=== PATIENT | female | born 1980 | race Two or more races ===

== ENCOUNTER 2017-02-02 09:16 | Inpatient (IN) | payer BC ==
[~2017-02-02] VITALS: Ht 162.6 cm; Wt 88.9 kg
[~2017-02-02 09:16] MED LIST: IBUP600 PO; OXYC1SOL5 PO; PERI8.6T PO; PNVPAK PO
[2017-02-09] VITALS (20 sets, daily range): BP systolic 99–121; BP diastolic 52–71; PULSE 69–82; RESP 16–20; TEMP 97.5–98.8; O2SAT 95–98
[2017-02-09] MEDS ORDERED: LACTATED RINGER'S 1000 ML INJ 1,000 ML IV ONE ×2 (10:15→13:15)
[2017-02-09] MEDS ORDERED: LACTATED RINGER'S 1000 ML INJ 1,000 ML IV SCH ×2 (10:45→18:26)
--- NOTE | 2017-02-09 10:50 | HHI.HP ---
HPI Chief Complaint Repeat . Date Seen: February 09, 2017 Travel History International Travel<30 Days: No Contact w/Intl Traveler<30Days: No History of Present Illness HPI Patient is a 36 year old at 39-2/7 weeks gestation who presents today for repeat . She denies any vaginal bleeding or discharge, no gush or leaking of fluid, and no contractions. Positive movement. No complications with . History Past Medical History Medical History: Denies Significant Hx Obstetric History Obstetric History s/p in 2014 for maternal fever, macrosomia Past Surgical History Narrative Surgical 2014 Family History Narrative Family History Family history of DM type 2 Family History: Social History Alcohol Use: No Tobacco Use: No Substance Abuse: No Allergies-Medications (Allergen,Severity, Reaction): Coded Allergies: No Known Allergies (Unverified , 03/20/15) Home Meds Reported Medications W/O Vit A W/ Fe Carbo (Pnv Ob+Dha) Pak1 Cap PO 03/20/15 Discontinued Scripts Sennosides-Docusate Sodium (Sarah-Colace 8.6-50 mg)1 Tab Tab2 Tab PO Q12H PRN ( CONSTIPATION) #28 TAB Ref 1 Prov:Bhavna Montalvo MD 03/22/15 Oxycodone W/ Acetaminophen (Oxycodone/Acetaminophen 5-325 mg/5Ml)1 Tab Tab1 Tab PO Q4H PRN (PAIN SCALE 3 TO 5) #30 TAB Prov:Bhavna Montalvo MD 03/22/15 Ibuprofen (Motrin 600 Mg Tab)600 Mg Oii511 Mg PO Q6H PRN ( CRAMPING) # 30 TAB Ref 1 Prov:Bhavna Montalvo MD 03/22/15 Review of Systems Except as stated in HPI: all other systems reviewed are Neg General / Constitutional: No: Fever, Chills Eyes: No: Blurred Vision, Visual changes HENT: No: Headaches Cardiovascular: No: Chest Pain or Discomfort Respiratory: No: Short of Breath Gastrointestinal: No: Abdominal Pain Genitourinary: No: Pelvic Pain, Discharge, Vaginal Bleeding Musculoskeletal: No: Edema Neurologic: No: Headache Psychiatric: No: Substance Abuse Physical Exam Narrative GENERAL: Well-nourished, well-developed patient. SKIN: Warm and dry. HEAD: Normocephalic and atraumatic. EYES: No scleral icterus. No injection or drainage. ENT: No nasal drainage noted. Mucous membranes pink. Airway patent. NECK: Supple, trachea midline. No JVD. CARDIOVASCULAR: Regular rate and rhythm without murmurs, gallops, or rubs. RESPIRATORY: Breath sounds equal bilaterally. No accessory muscle use. ABDOMEN/GI: Abdomen soft, non-tender, bowel sounds present, no rebound, no guarding Gravid to 39 weeks size GENITOURINARY: Membranes: intact Uterine Contractions: none FHT's: Category: I Baseline: 130 Reactive: + Variability: moderate Decels: none EXTREMITIES: No cyanosis or edema. BACK: Nontender without obvious deformity. No CVA tenderness. NEUROLOGICAL: Awake and alert. Motor and sensory grossly within normal limits. Normal speech. Data Data Vital Signs Reviewed: Yes Orders Admit To Inpatient (02/09/17 ) Code Status (02/09/17 10:15) Vital Signs (Adult) .ON ADMISSION (02/09/17 10:15) Activity Oob Ad Laura (02/09/17 10:15) Heart (02/09/17 10:15) Urinary Catheter Management CONG.Q8H (02/09/17 10:15) ^ Preps (02/09/17 10:15) Scd / Jacob / Foot Pump CONG.QSHIFT (02/09/17 10:15) ^ Ultrasound For Locatio (02/09/17 10:15) Diet Npo (02/09/17 Lunch) Lactated Ringer's 1000 Ml Inj (Lr 1000 M (02/09/17 10:15) Lactated Ringer's 1000 Ml Inj (Lr 1000 M (02/09/17 10:45) Citric Acid-Sodium Citrate Liq (Bicitra (02/09/17 11:45) Type And Screen (02/09/17 10:15) Complete Blood Count With Diff (02/09/17 10:15) Urinalysis - C+S If Indicated (02/09/17 10:15) Inpatient Certification (02/09/17 ) Specimen To Be Collected PRN (02/09/17 10:15) Cefazolin 2 Gm Premix (Ancef 2 Gm Premix (02/09/17 11:30) Assessment/Plan Assessment and Plan 36 year old at 39-2/7 weeks gestation. 1. IUP- Category I tracing, reassuring. 2. Repeat . 3. GBS negative. dw Dr. Rosalva Terry,Erika Ca MD R2 February 09, 2017 10:50
[2017-02-09 10:52] LABS: AUTOMATED NEUTROPHIL # 5.7 TH/MM3 (1.8-7.7); BASOPHIL % 0.4 % (0.0-2.0); EOSINOPHIL # 0.1 TH/MM3 (0-0.4); EOSINOPHIL % 1.3 % (0.0-4.0); HEMATOCRIT 32.5 % (35.0-46.0); HEMO FLAGS DIFF FINAL; LYMPH % 16.7 % (9.0-44.0); LYMPHOCYTE # 1.3 TH/MM3 (1.0-4.8); MEAN CELL VOLUME 84.2 FL (80.0-100.0); MEAN CORPUSCULAR HEMOGLOBIN 27.3 PG (27.0-34.0); MEAN CORPUSCULAR HGB CONC 32.4 % (32.0-36.0); MONO % 7.5 % (0.0-8.0); NEUT % 74.1 % (16.0-70.0); PLATELET COUNT 186 TH/MM3 (150-450); RED BLOOD COUNT 3.86 MIL/MM3 (4.00-5.30); RED CELL DISTRIBUTION WIDTH 18.9 % (11.6-17.2); WHITE BLOOD COUNT 7.7 TH/MM3 (4.0-11.0)
[2017-02-09 11:03] LABS: BLOOD, URINE NEG (NEG); COMMENT (UR) CULT NOT INDICATED; CULTURE IF INDICATED CULT NOT INDICATED; GLUCOSE,URINE NEG (NEG); KETONE, URINE NEG (NEG); MUCUS URINE FEW /lpf (OCC); NITRITE,URINE NEG (NEG); PH, URINE 6.5 (5.0-8.5); SQUAMOUS EPITHELIAL CELL URINE 1 /hpf (0-5); URINE COLOR YELLOW (YELLW/STRAW)
[2017-02-09] MEDS ORDERED: ceFAZolin 2 GM PREMIX 50 ML IV SCH (11:30)
[2017-02-09] MEDS ORDERED: CITRIC ACID-SODIUM CITRATE LIQ 30 ML UDC PO SCH (11:45)
[2017-02-09] MEDS ORDERED: OXYTOCIN 10 UNIT/ML AMP ONE (11:54)
[2017-02-09] MEDS ORDERED: EPIDURAL-DIPHENHYDRAMINE HCL 50 MG CAP PO PRN (12:05)
[2017-02-09] MEDS ORDERED: EPIDURAL-NO SYSTEMIC NARCOTICS PRN (12:05)
[2017-02-09] MEDS ORDERED: EPIDURAL-DIPHENHYDRAMINE HCL 50 MG/ML VIAL IV PUSH PRN (12:05)
[2017-02-09] MEDS ORDERED: EPIDURAL-DO NOT ADMINISTER ANTICOAGULANTS PRN (12:05)
[2017-02-09] MEDS ORDERED: EPIDURAL-NALOXONE HCL 0.4 MG/ML AMP IV PRN (12:05)
[2017-02-09] MEDS ORDERED: ePHEDrine/NS 25 MG/5 ML SYR IV ONE (13:15)
[2017-02-09] MEDS ORDERED: PHENYLEPH/NS 1000 MCG/10 ML SYR IV ONE (13:15)
[2017-02-09] MEDS ORDERED: ONDANSETRON HCL 4 MG/2 ML VIAL IV PUSH PRN (13:30)
[2017-02-09] MEDS ORDERED: SIMETHICONE 80 MG CHEWABLE TAB PO PRN (13:30)
[2017-02-09] MEDS ORDERED: ZOLPIDEM TARTRATE 5 MG TAB PO PRN (13:30)
[2017-02-09] MEDS ORDERED: OXYTOCIN 30 UNITS-500ML PREMIX 500 ML IV ONE (13:30)
[2017-02-09] MEDS ORDERED: oxyCODONE/ACETAMINOPHEN 5 MG/325 MG TAB PO PRN (13:30)
[2017-02-09] MEDS ORDERED: ACETAMINOPHEN 325 MG TAB PO PRN (13:30)
[2017-02-09] MEDS ORDERED: SODIUM CHLORIDE 0.9% FLUSH 10 ML FLUSH IV FLUSH PRN (13:30)
[2017-02-09] MEDS ORDERED: MORPHINE SULFATE PF 5 MG/10 ML VIAL ONE (13:31)
--- NOTE | 2017-02-09 13:31 | PD.OB.DELI ---
Procedure Note Section Procedure Pre Op Diagnosis: (1) S/P section Post Op Diagnosis: (1) Status post repeat low transverse section Performed by Dr. Maddie Blackwell and Dr. Erika Terry Procedure: Repeat Low Transverse Sec Indication for delivery: Desired elective repeat Informed consent obtained: For anesthesia, For procedure Confirmed correct: Patient, Procedure, Site, Time-out taken Anesthesia: Spinal Medication prior to procedure: As documented in eMAR Monitoring during procedure: Blood pressure monitoring, case monitor, Pulse oximetry Urinary catheter: Inserted using sterile technique Sterile preparation: In usual fashion Position: Supine with wedge to right side Operative Features Skin Incision: Pfannenstiel Uterine Incision: Low transverse w/knife / blunt ext Membranes Ruptured: Artificially, Appearance of fluid (clear) Presentation: Occiput anterior Time of : 12:37 Delivery of infant: Uneventful : Female One Minute : 8 Five Minute : 9 Weight: 3840g Status of : Viable, Nursery present Placenta delivered: Intact Medications: Antibiotics, Oxytocin Estimated blood loss: 500cc Procedure tolerated: Well Maternal Condition: Stable Condition: Stable Procedure in detail Preoperative Diagnosis: 1. Repeat . 2. Intrauterine at 39-2/7 weeks gestation Postoperative Diagnosis: 1. Repeat . 2. Intrauterine at 39-2/7 weeks gestation Procedure Primary low transverse section. Anesthesia Spinal Surgeon Maddie Blackwell MD Co-Surgeon Erika Terry MD Findings Normal female 3840g with Apgars 8 and 9. Normal fallopian tubes, normal ovaries, normal uterus. Complications None. Counts Correct Estimated Blood Loss 500mL Fluids Crystalloids. Disposition The patient tolerated procedure well, went to recovery room in good condition. Procedure in Detail The patient was taken to the operating room, identified by name band and verbally given a spinal anesthetic, prepped and draped in the usual sterile fashion for a repeat section. Time-out was taken. A Pfannenstiel incision was made. The incision as taken down to the fascia. The fascia was taken off the rectus muscles by blunt and sharp dissection. The rectus muscles were spread bluntly and the peritoneum entered under direct vision without difficulty. The incision was extended with care to avoid the urinary bladder. The lower uterine segment was identified and a bladder flap was created in the usual fashion, pushing the peritoneum off the bladder. The incision on the uterus was made in a transverse manner and taken down in the midline until the uterine cavity was entered. Clear fluid was noted and the incision was extended with the surgeon's fingers and bandage scissors. The fetus was noted to be in vertex position. The head was delivered first followed by the body without complication. The cord was doubly clamped and cut after a 45-second wait period. The baby was handed to the resuscitation team present. The placenta was removed manually after cord blood was taken and the uterus was curettaged twice with a wet lap. The uterus was delivered from the abdomen. The uterine incision was repaired with a 0 Vicryl in a running fashion in two layers , the second layer imbricating the first. The cul-de-sac and gutters were cleaned of blood and debris, the uterus delivered back into the abdomen. The incision was dry. At this point the rectus muscles were reapproximated with 0 Vicryl in a running fashion. The fascia was repaired with 0 Vicryl in a running fashion. The subcu was repaired with 3-0 Vicryl in a running fashion and the skin was repaired with 4-0 Monocryl in a subcuticular manner. She tolerated the procedure well and went to the recovery room in good condition. Erika Terry MD R2 February 09, 2017 13:31
[2017-02-09] MEDS ORDERED: OXYTOCIN 30 UNITS-500ML PREMIX 500 ML ONE (14:11)
[2017-02-09] MEDS ORDERED: ONDANSETRON HCL 4 MG/2 ML VIAL ONE (14:25)
[2017-02-09] MEDS ORDERED: PHENERGAN 25 MG/ML IM PRN (16:00)
[2017-02-09] MEDS ORDERED: SODIUM CHLORIDE 0.9% FLUSH 10 ML FLUSH IV FLUSH SCH (21:00)
[2017-02-09] MEDS ORDERED: OXYTOCIN 30 UNITS-500ML PREMIX 500 ML IV PRN (23:30)
[2017-02-10 00:18] VITALS: BP 117/69; PULSE 88; RESP 18; TEMP 100.1
[2017-02-10] MEDS: DOCUSATE SODIUM 50 MG/SENNA 8.6 MG TAB PO PRN ×2 (00:25→14:12)
[2017-02-10 04:23] VITALS: BP 100/55; PULSE 75; RESP 16; TEMP 99
[2017-02-10 05:55] LABS: AUTOMATED NEUTROPHIL # 9.9 TH/MM3 (1.8-7.7); BASOPHIL % 0.2 % (0.0-2.0); EOSINOPHIL # 0.1 TH/MM3 (0-0.4); EOSINOPHIL % 0.5 % (0.0-4.0); HEMATOCRIT 28.5 % (35.0-46.0); HEMO FLAGS DIFF FINAL; LYMPH % 8.6 % (9.0-44.0); MEAN CELL VOLUME 84.7 FL (80.0-100.0); MEAN CORPUSCULAR HEMOGLOBIN 27.3 PG (27.0-34.0); MEAN CORPUSCULAR HGB CONC 32.2 % (32.0-36.0); MONO % 8.3 % (0.0-8.0); NEUT % 82.4 % (16.0-70.0); PLATELET COUNT 173 TH/MM3 (150-450); RED BLOOD COUNT 3.37 MIL/MM3 (4.00-5.30); RED CELL DISTRIBUTION WIDTH 19.3 % (11.6-17.2); WHITE BLOOD COUNT 12.1 TH/MM3 (4.0-11.0)
[2017-02-10 08:00] VITALS: BP 117/68; PULSE 84; RESP 18; TEMP 98.3
[2017-02-10] MEDS: IBUPROFEN 600 MG TAB PO PRN ×3 (08:37→20:57)
[2017-02-10] MEDS: oxyCODONE/ACETAMINOPHEN 5 MG/325 MG TAB PO PRN ×3 (08:38→20:56)
--- NOTE | 2017-02-10 09:15 | HHI.OB ---
Subjective Post Operative Day: 1 Objective Vitals/I&O Vital Signs Date Time Temp Pulse Resp B/P Pulse Ox O2 Delivery O2 Flow Rate FiO2 02/10/17 08:00 98.3 84 18 117/68 02/10/17 04:23 99.0 75 16 100/55 02/10/17 00:18 100.1 88 18 117/69 02/09/17 20:10 98.8 72 16 102/52 02/09/17 17:27 16 02/09/17 16:33 17 02/09/17 15:40 18 02/09/17 15:05 97.5 82 18 113/71 02/09/17 14:33 20 02/09/17 14:30 69 20 121/67 02/09/17 14:30 98.6 98 02/09/17 14:15 78 02/09/17 14:15 106/55 02/09/17 14:13 20 02/09/17 14:00 72 102/56 96 02/09/17 13:56 20 02/09/17 13:45 101/55 02/09/17 13:45 73 20 95 02/09/17 13:30 97.7 96 02/09/17 13:30 77 20 99/55 02/09/17 10:52 98.0 02/09/17 10:46 18 02/09/17 10:45 77 02/09/17 10:45 81 113/69 02/09/17 10:40 79 02/09/17 10:38 76 117/69 02/09/17 10:35 81 02/09/17 10:30 78 Result Diagram: 02/10/17 0506 Objective Remarks GENERAL: Well-nourished, well-developed patient. CARDIOVASCULAR: Regular rate and rhythm without murmurs, gallops, or rubs. RESPIRATORY: Breath sounds equal bilaterally. No accessory muscle use. ABDOMEN/GI: Abdomen soft, non-tender, bowel sounds present. Incision: DRESSING, Clean, dry and intact. Fundus: Firm, non-tender at umbilicus. GENITOURINARY: Light to moderate bleeding. EXTREMITIES: No cyanosis, edema +1, non-tender, without signs of DVT. Medications and IVs Current Medications Medications (Trade) Dose Ordered Sig/Akosua Route Start Time Stop Time Status Last Admin (Lr 1000 ml Inj) 1,000 ml @ 100 mls/hr Q10H IV 02/09/17 18:26 02/10/17 14:25 (NS Flush) 2 ml BID IV FLUSH 02/09/17 21:00 (NS Flush) 2 ml UNSCH PRN IV FLUSH 02/09/17 13:30 (Mylicon Chew) 80 mg QID PRN PO 02/09/17 13:30 (Tylenol) 650 mg Q6H PRN PO 02/09/17 13:30 02/10/17 00:25 (Motrin) 600 mg Q6H PRN PO 02/09/17 13:30 02/10/17 08:37 (Percocet 5-325 Mg) 1 tab Q4H PRN PO 02/09/17 13:30 02/10/17 08:38 (Percocet 5-325 Mg) 2 tab Q4H PRN PO 02/09/17 13:30 (Sarah-Colace) 2 tab Q12H PRN PO 02/09/17 13:30 02/10/17 00:25 (Ambien) 5 mg HS PRN PO 02/09/17 13:30 (M-M-R Ii Inj) 0.5 ml ONCE ONCE SQ 02/10/17 16:00 02/10/17 16:01 (Boostrix Inj) 0.5 ml ONCE ONCE IM 02/10/17 16:00 02/10/17 16:01 02/09/17 23:11 (Zofran Inj) 4 mg Q6H PRN IV PUSH 02/09/17 13:30 Miscellaneous Information NO SYSTEMIC NARCOTICS TO BE GIVEN FO... UNSCH PRN .XX 02/09/17 12:05 02/10/17 12:04 (Narcan Inj) 0.4 mg UNSCH PRN IV 02/09/17 12:05 02/10/17 12:04 (Benadryl Inj) 25 mg Q6H PRN IV PUSH 02/09/17 12:05 02/10/17 12:04 (Benadryl) 50 mg Q6H PRN PO 02/09/17 12:05 02/10/17 12:04 Miscellaneous Information ALL NURSING DEPARTMENTS UNSCH PRN .XX 02/09/17 12:05 02/10/17 12:04 Non-Formulary Medication NON-FORMULARY DRUG:PHENERGAN 25 MG... Q4H PRN IM 02/09/17 16:00 02/09/17 16:33 Assessment/Plan Problem List: (1) Status post repeat low transverse section Plan: ROUTINE (2) Anemia Plan: WILL TREAT POST Assessment and Plan pod #1 PT DOING WELL Encouraged to shower pt encouraged to take percocet for pain and bonding with infant routine Discharge Planning CONSIDER DC IN 1-2 DAYS Mae Celeste February 10, 2017 09:15
--- NOTE | 2017-02-10 09:16 | HHI.DCPOC ---
Discharge Care Plan Diagnosis: (1) Status post repeat low transverse section (2) Anemia Additional Problems will start daily oral iron once she is no longer taking percocet Report Symptoms to Your Doctor -Temperate above 100.5 degrees -Redness, of incision or excessive or foul smelling drainage -Unusual pain or calf pain -Increased vaginal bleeding -Painful or difficulty urinating -Feelings of extreme sadness or anxiety after 2 weeks Goals to Promote Your Health * To prevent worsening of your condition and complications * To maintain your health at the optimal level Directions to Meet Your Goals Take your medications as prescribed Follow your dietary instruction Follow activity as directed Ensure plenty of rest for recovery Drink fluids for hydration Keep your appointments as scheduled Take your immunizations and boosters as scheduled If your symptoms worsen call your PCP, if no PCP go to Urgent Care Center or Emergency Room Smoking is Dangerous to Your Health. Avoid second hand smoke Call the 24-hour crisis hotline for domestic abuse at Mae Celeste February 10, 2017 09:16
[2017-02-10] MEDS ORDERED: MEASLES, MUMPS, RUBELLA VACCINE 0.5 ML VIAL SQ ONE (16:00)
[2017-02-10] MEDS ORDERED: DIPHTH/TETANUS/ACEL PERTUSSIS (BOOSTER) 0.5 ML VIAL/PFS IM ONE (16:00)
[2017-02-11] MEDS: IBUPROFEN 600 MG TAB PO PRN ×2 (02:57→08:55)
[2017-02-11] MEDS: oxyCODONE/ACETAMINOPHEN 5 MG/325 MG TAB PO PRN (02:57)
[2017-02-11 08:00] VITALS: BP 116/74; PULSE 76; RESP 18; TEMP 97.9
[2017-02-11] MEDS ORDERED: OXYC1TAB63 PO (08:17)
[2017-02-11] MEDS ORDERED: IBUP-232 PO (08:17)
--- NOTE | 2017-02-11 08:43 | HHI.OB ---
Subjective Post Operative Day: 2 Objective Result Diagram: 02/10/17 0506 Objective Remarks GENERAL: Well-nourished, well-developed patient. CARDIOVASCULAR: Regular rate and rhythm with known murmur, gallops, or rubs. RESPIRATORY: Breath sounds equal bilaterally. No accessory muscle use. ABDOMEN/GI: Abdomen soft, non-tender, bowel sounds present. Incision:, Clean, dry and intact. Fundus: Firm, non-tender at umbilicus. GENITOURINARY: Light to moderate bleeding. EXTREMITIES: No cyanosis, slight edema, non-tender, without signs of DVT. Medications and IVs Current Medications Medications (Trade) Dose Ordered Sig/Akosua Route Start Time Stop Time Status Last Admin (NS Flush) 2 ml BID IV FLUSH 02/09/17 21:00 (NS Flush) 2 ml UNSCH PRN IV FLUSH 02/09/17 13:30 (Mylicon Chew) 80 mg QID PRN PO 02/09/17 13:30 (Tylenol) 650 mg Q6H PRN PO 02/09/17 13:30 02/10/17 00:25 (Motrin) 600 mg Q6H PRN PO 02/09/17 13:30 02/11/17 02:57 (Percocet 5-325 Mg) 1 tab Q4H PRN PO 02/09/17 13:30 02/11/17 02:57 (Percocet 5-325 Mg) 2 tab Q4H PRN PO 02/09/17 13:30 (Sarah-Colace) 2 tab Q12H PRN PO 02/09/17 13:30 02/10/17 14:12 (Ambien) 5 mg HS PRN PO 02/09/17 13:30 (Zofran Inj) 4 mg Q6H PRN IV PUSH 02/09/17 13:30 Non-Formulary Medication NON-FORMULARY DRUG:PHENERGAN 25 MG... Q4H PRN IM 02/09/17 16:00 02/09/17 16:33 Assessment/Plan Problem List: (1) Status post repeat low transverse section Plan: ROUTINE (2) Anemia Plan: WILL TREAT POST Assessment and Plan pod #2 PT DOING WELL ambulating in room without difficulty pain well managed with oral pain medication and bonding with routine Discharge Planning dc home today Mae Celeste Feb 11, 2017 08:43
--- NOTE | 2017-02-11 08:47 | HHI.DS ---
Admission Date February 09, 2017 at 10:00 Discharge Date: Feb 11, 2017 Admitting Diagnosis term previous c section anemia Diagnosis: (1) Status post repeat low transverse section Diagnosis: Principal (2) Anemia Diagnosis: Secondary Delivery Date: February 09, 2017 : Repeat : Female Brief History term previous c section anemia repeat c section . Hospital Course routine care Pt Condition on Discharge: Good Discharge Disposition: Discharge Home Discharge Instructions Diet Instructions: As Tolerated, No Restrictions Additional Diet Instructions: Drink at least 8 - 16 oz bottles of water a day Activities You Can Perform: Shower Only-No Bath Activities to Avoid: Prolonged Standing, Strenuous Activity, Sexual Activity Additional Activity Instruc.: No driving until off pain medications Do not lift anything heavier than your baby in an infant carrier Follow up Referrals: VIRTUALIZATION CONSULTANT - 1 Week @ [facility] [place] New Medications: Ibuprofen (Ibuprofen) 600 Mg Tab 600 MG PO Q6H Pain Management #30 Ref 1 TAB Oxycodone-Acetaminophen (Oxycodone-Acetaminophen) 5-325 mg Tab 1 TAB PO Q4H moderate pain #30 TAB Continued Medications: W/O Vit A W/ Fe Carbo (Pnv Ob+Dha) Ernie 1 CAP PO Mae Felix Feb 11, 2017 08:47
[2017-02-11] MEDS: DOCUSATE SODIUM 50 MG/SENNA 8.6 MG TAB PO PRN (08:54)
== END 2017-02-11 12:38 | disposition home or self-care (01) | DRG 766 ==
LOC: H2EB 02-09 10:00 → H1EA 02-09 14:52
PROVIDERS: ADMIT Obstetrics & Gynecology; ATTEND Obstetrics & Gynecology
PROC: 10D00Z1 Extraction of Products of Conception, Low, Open Approach (ICD-10-PCS; principal; 2017-02-09)
DX: O34.211 Maternal care for low transverse scar from previous cesarean delivery (principal); D64.9 Anemia, unspecified; O99.02 Anemia complicating childbirth; Z37.0 Single live birth; Z3A.39 39 weeks gestation of pregnancy; R01.1 Cardiac murmur, unspecified
CPT/HCPCS: 59025; 81001; 85025; 86850; 86900; 86901; 90715; J0690; J2274; J2370; J2405; J2590; J7120

== ENCOUNTER → 2018-01-20 | Day surgery (SDC) | payer BC ==
[~2018-01-20] VITALS: Ht 162.6 cm; Wt 72.1 kg
[~2018-01-20] MED LIST changes: +ACETAMINOPHEN 1000 MG/100 ML 100 ML IV ONE; +ACETAMINOPHEN/HYDROcodone 325 MG/5 MG TAB PO PRN; +APREPITANT 40 MG CAP ONE; +BUPIVACAINE/EPINEPHRINE 0.5% PF 30 ML VIAL ONE; +CHLORHEXIDINE GLUCONATE 2 % 1 PACK (2 CLOTHS) TOPICAL PRN; +DEXAMETHASONE SOD PHOS 4 MG/ML VIAL IV ONE; +DO NOT ADM ANY ANTICOAGULANT DRUGS PRN; +FAMOTIDINE 20 MG/2 ML VIAL IV ONE; +GLYCOPYRROLATE 1 MG/5 ML SYRINGE IV PUSH ONE; +IBUP-232 PO; -IBUP600 PO; +KETOROLAC TROMETHAMINE 30 MG/ML (IVP) VIAL IV PUSH ONE; +LACTATED RINGER'S 1000 ML INJ 1,000 ML IV ONE; +LACTATED RINGER'S 1000 ML IV PRN; +LIDOCAINE HCL 1% PF 5 ML SYRINGE OTHER ONE; +METHYLERGONOVINE MALEATE 0.2 MG/ML VIAL ONE; +METOPROLOL TARTRATE 25 MG TAB PO PRN; +MIDAZOLAM HCL 2 MG/2 ML VIAL ONE; +NEOSTIGMINE 5 MG/5 ML SYRINGE IV PUSH ONE; +ONDANSETRON HCL 4 MG/2 ML VIAL IV PUSH ONE; -OXYC1SOL5 PO; +OXYC1TAB63 PO; +OXYTOCIN 10 UNIT/ML AMP ONE; -PERI8.6T PO; +PHENYLEPH/NS 1000 MCG/10 ML SYR IV ONE; +POVIDONE IODINE 5% (ANTISEPSIS KIT) 4 APPLICATIONS EACH NARE PRN; +PROMETHAZINE INJ 25 MG/ML VIAL IM PRN; +PROPOFOL 200 MG/20 ML AMP IV ONE; +ROCURONIUM INJ 50 MG/5 ML SYRINGE IV PUSH ONE; +SODIUM CHLORID 0.9% 500 ML IV PRN; +ceFAZolin INJ 1,000 MG VIAL IV ONE; +ceFAZolin INJ 1,000 MG VIAL ONE
[2018-01-20 11:24] LABS: AUTOMATED NEUTROPHIL # 2.2 TH/MM3 (1.8-7.7); BASOPHIL % 0.5 % (0.0-2.0); EOSINOPHIL # 0.1 TH/MM3 (0-0.4); EOSINOPHIL % 2.5 % (0.0-4.0); HEMATOCRIT 37.1 % (35.0-46.0); HEMOGLOBIN 12.3 GM/DL (11.6-15.3); LYMPH % 38.3 % (9.0-44.0); LYMPHOCYTE # 1.7 TH/MM3 (1.0-4.8); MEAN CELL VOLUME 84.3 FL (80.0-100.0); MEAN CORPUSCULAR HEMOGLOBIN 27.8 PG (27.0-34.0); MEAN CORPUSCULAR HGB CONC 33.1 % (32.0-36.0); MEAN PLATELET VOLUME 8.5 FL (7.0-11.0); MONO % 8.4 % (0.0-8.0); MONOCYTE # 0.4 TH/MM3 (0-0.9); NEUT % 50.3 % (16.0-70.0); PLATELET COUNT 209 TH/MM3 (150-450); RED BLOOD COUNT 4.41 MIL/MM3 (4.00-5.30); RED CELL DISTRIBUTION WIDTH 15.1 % (11.6-17.2); WHITE BLOOD COUNT 4.4 TH/MM3 (4.0-11.0)
--- NOTE | 2018-01-20 15:12 | MP ---
cc: Maddie Blackwell MD DATE OF OPERATION: 01/20/2018 DATE OF OPERATION: 01/20/2018 PREOPERATIVE DIAGNOSIS: Intrauterine demise at 8 weeks. POSTOPERATIVE DIAGNOSES: 1. Intrauterine demise at 8 weeks. 2. Possible uterine perforation. PROCEDURE PERFORMED: Examination under anesthesia, dilation and evacuation of the uterus with a laparoscopic exam. ANESTHESIA: General endotracheal intubation. SURGEON: Maddie Blackwell MD FINDINGS: The examination under anesthesia revealed a uterus that was slightly larger than 8 weeks size, 10-12 weeks size. It was boggy and large. The D and C revealed a large amount of tissue for a of this age and during the procedure, I felt that I may have perforated her because the curet went so deep. The products of conception were large in amount and despite adequate suction, kept coming. The laparoscopic exam revealed a large boggy uterus that was somewhat irregular concerning for a possible bicornuate uterus. The fallopian tubes and ovaries were normal. The posterior cul-de-sac was completely normal. There was no perforation whatsoever. We completed the D and E under laparoscopic visualization. COMPLICATIONS: Possible perforation of the uterus. Laparoscopic exam revealed that there was none. COUNTS: Correct. ESTIMATED BLOOD LOSS: 200 mL. FLUIDS: Crystalloid. DISPOSITION: The patient tolerated the procedure well, went to the recovery room in good condition. DESCRIPTION OF PROCEDURE: The patient was taken to the operating room, identified by name band and appropriate given a general anesthetic, prepped and draped in the usual sterile fashion for a dilation and evacuation of the uterus. The timeout was taken and we proceeded. A weighted speculum was placed in the vagina. The anterior lip of cervix was grasped with a single-tooth tenaculum. Cervix was serially dilated without difficulty. A #8 cannula was then placed into the uterine cavity and the products of conception were evacuated. There was a very large amount of tissue for a this far along and I had reviewed the ultrasound personally prior to doing this procedure. While doing the sharp curettage, it seemed that the uterus was quite deep, deeper than I expected. I thought I might have perforated her. Before proceeding with any more suction evacuation, I wanted to do a laparoscopic exam to confirm that diagnosis and to make sure we did not injure the bowel. At this point, the patient was intubated. The OR team worked very well together and got her ready for laparoscopic exam. Once prepped and draped, at this time, a speculum was placed in the vagina. The anterior lip of cervix was grasped with a single-tooth tenaculum. A HUMI cannula was placed for uterine manipulation and the tenaculum was left intact. The surgeon changed gloves and went to the umbilical area. A small subumbilical incision was made. A 5 mm trocar was used to enter the abdomen and a pneumoperitoneum was created with 3 liters of CO2. The uterus was quite boggy and it was very hard to see the posterior area, so we put a second puncture inferior lateral to the umbilicus on the left side under direct vision without difficulty. Using a probe, we managed to lift the uterus up from below with the probe. There was absolutely no blood, no perforation noted. As my licensed occupational therapy assistant held the laparoscope, we continued and redid the dilation and evacuation. There was still quite a bit more tissue in there and it seemed it was mostly on the left side. I wondered if she has had a bicornuate uterus. We redid the sharp curettage gently and I felt that we had cleaned her uterus out fairly well. At this point, all instruments were removed and we went above again. Using the laparoscope, I visualized the entire abdomen and the second puncture was used to release the air and the trocars were removed. The laparoscope was removed under direct vision and the skin incisions were repaired with 4-0 Monocryl in a subcuticular manner. The patient tolerated the procedure well and went to the recovery room in good condition. I discussed this case in detail with her during the case before we do the laparoscope and afterwards. I am very concerned about her nausea because she has a terrible time with that and Zofran does not work, so I wrote her for some Phenergan at home as well as ordered it in the hospital. If she is very nauseated after the procedure, we will keep her overnight. R. MD KHOA TangV/FRANKLYN , 02:36 PM , 03:12 PM
[2018-01-20 15:20] VITALS: BP 91/55; PULSE 59; RESP 18; TEMP 97.5; O2SAT 100
== END | disposition home or self-care (01) ==
LOC: HSDC 10:15
PROVIDERS: ATTEND Obstetrics & Gynecology
DX: O02.1 Missed abortion (principal)
CPT/HCPCS: 01965; 59820; 85025; 88305; J0131; J0690; J1100; J1885; J2210; J2250; J2370; J2405; J2590; J2710; J3010; J7120; J8501